=== PATIENT | male | born 1980 | race Caucasian/White ===

== ENCOUNTER 2020-11-09 18:26 | Emergency (ER) | payer MEDICAID, SELFPAY ==
[2020-11-09 18:27] VITALS: BP 116/67; PULSE 95; RESP 16; TEMP 37.3; O2SAT 97; BMI 23.9
--- NOTE | 2020-11-09 19:12 | EX.ED.UPPERE ---
HPI History of Present Illness Chief Complaint: Upper Extremity Injury Detail of Chief Complaint: Left elbow pain and swelling Informant: patient Onset/Context/Timing Onset: Yesterday Context: Gradual Onset Quality of Pain: Aching and Throbbing Current Severity: Moderate Maximum Severity: Moderate Narrative Narrative: Patient presents secondary left elbow pain and swelling. Patient states he went tubing yesterday and fell into the water striking his left elbow against a rock. He has had progressive redness and swelling over the extensor surface. He is right-hand dominant. No fever or chills. Does note decreased range of motion of the elbow secondary to pain. [facility], [facility] Medical History Hernia Home Medications doxycycline monohydrate 100 mg PO BID #20 cap 11/09/20 [Rx Last Taken Unknown] naproxen [Naprosyn] 500 mg PO BID PRN #20 tab 11/09/20 [Rx Last Taken Unknown] Allergy/AdvReac Type Severity Reaction Status Date / Time No Known Allergies Allergy Verified 11/09/20 18:28 Social History Smoking Status: Never smoker ROS ROS ED Constitutional Constitutional ED: Denies chills or fever(s) Eyes Eyes: Denies change in vision ENT ENT ED: Denies sore throat Cardiovascular Cardiovascular: Denies chest pain Respiratory/Chest Respiratory/Chest: Denies cough or dyspnea Gastrointestinal Gastrointestinal: Denies abdominal pain, diarrhea, nausea or vomiting Genitourinary Genitourinary ED: Denies dysuria Musculoskeletal Musculoskeletal: Reports other Details: Left elbow pain and swelling ; Denies back pain Neurologic Neurologic: Denies headache(s) or weakness Psychiatric Psychiatric: Denies anxiety or depression Endocrine Endocrinology: Denies polydipsia or polyuria Allergic/Immunologic Allergic/Immunologic ED: Denies urticaria EXAM Physical Exam Const Vital Signs: 11/09/20 18:27 Temperature 99.1 F Temperature Source Temporal Pulse Rate 95 Respiratory Rate 16 Blood Pressure 116/67 Blood Pressure Mean 83 Pulse Ox 97 Oxygen Delivery Method Room Air Positive well nourished and well developed General Appearance ED: well developed HEENT Reports normocephalic and head/scalp atraumatic Eyes PERRL and EOMs intact bilaterally Neck supple Chest Wall inspection of chest normal and palpation of chest normal Resp normal respiratory effort and clear to auscultation bilaterally Cardio regular rate and regular rhythm GI normal to inspection, nondistended, normoactive bowel sounds Palpation: soft Extremity Extremity Narrative: Erythema, edema, warmth noted to the olecranon bursa of the left elbow. Decreased range of motion with flexion extension secondary to pain and pulling over the extensor surface. Patient is able to pronate and supinate without difficulty. Neuro oriented x3 and no sensory deficits noted Sensorium / Orientation: alert Psych mental status grossly normal Skin no rashes or lesions noted MDM MDM MDM Narrative Medical decision making narrative: 1/2 cc 1% lidocaine is infused locally to the skin over the olecranon bursa. 18-gauge needle is introduced and 3 cc of straw fluid are withdrawn. Pressure dressing is applied over the elbow. Patient will be treated with a course of doxycycline, 1st dose given here. He is given a work note for the next couple days. Discharge Plan Triage Chief Complaint: Upper Extremity Injury ED Provider: Delmy Amaya Dx/Rx/DC Orders Clinical Impression: Olecranon bursitis Instructions: ED Bursitis Elbow Olecranon Prescriptions: New doxycycline monohydrate 100 MG capsule 100 mg PO BID Qty: 20 RF: 0 naproxen [Naprosyn] 500 mg tablet 500 mg PO BID PRN (Reason: pain) Qty: 20 RF: 0 Stand Alone Forms: ED Work / School Excuse Primary Care Provider: Kj Smith Referrals: Kj Smith, [Primary Care Provider] - 5-7 Days Disposition Disposition: Home, Self Care Discharge Date/Time: 11/09/20 19:35
[2020-11-09] MEDS: Doxycycline 100 MG CAPSULE PO (19:32)
[2020-11-09] MEDS: Lidocaine 1% (20 ml mdv) 20 ML Vial INFILT (19:32)
[2020-11-09] MEDS: Naproxen 500 MG Tablet PO (19:32)
== END 2020-11-09 19:35 | disposition home or self-care (01) ==
PROVIDERS: Emergency Provider Emergency Medicine; PCP Family Medicine
DX: M70.22 Olecranon bursitis, left elbow (principal); Y93.9 Activity, unspecified; W22.09XA Striking against other stationary object, initial encounter
CPT/HCPCS: 99284

== ENCOUNTER 2022-03-17 16:39 | Emergency (ER) | payer MEDICAID, SELFPAY ==
[2022-03-17 16:39] VITALS: BP 156/96; PULSE 60; RESP 18; TEMP 37.1; O2SAT 98; BMI 22.5
--- NOTE | 2022-03-17 18:49 | EX.ED.VIS.UR ---
HPI HPI - URI History of Present Illness Chief Complaint: Cold Sx Detail of Chief Complaint: Nonproductive cough subjective fever and chills. Informant: patient Onset/Context/Timing Onset: Days Context: Gradual Onset Timing: Continuous Current Severity: Mild Maximum Severity: Mild Associated Symptoms Associated Symptoms: Positive for Nasal Congestion, Nausea, Vomiting, Diarrhea and Nonproductive cough Narrative Narrative: 42-year-old male no stated past medical history. Says Tuesday for the last 3 days he had nonproductive cough. Subjective fever and chills. On Tuesday had nausea vomiting diarrhea that is since resolved. He is able to hold down fluids. He denies any shortness of breath. Nonproductive cough. Prior similar symptoms: Yes Recent Illness/Hospitalization: No ROS ROS ED ROS Narrative Cough. Fever and chills subjectively. Nausea, vomiting and diarrhea resolved Review of Systems ROS Unobtainable: Denies due to encephalopathy Constitutional Constitutional ED: Reports chills, fever(s) and subjective Eyes Eyes: Denies blurry vision ENT ENT ED: Reports rhinorrhea; Denies ear pain Cardiovascular Cardiovascular: Denies chest pain or palpitations Respiratory/Chest Respiratory/Chest: Reports cough; Denies dyspnea Gastrointestinal Gastrointestinal: Reports diarrhea, nausea and vomiting; Denies abdominal pain, constipation or melena Genitourinary Genitourinary ED: Denies dysuria Musculoskeletal Musculoskeletal: Reports myalgias; Denies arthralgias Integumentary Denies abscess Neurologic Neurologic: Denies headache(s) Psychiatric Psychiatric: Denies anxiety Endocrine Endocrinology: Denies cold intolerance Hematologic/Lymphatic Hematologic/Lymphatic: Denies easy bleeding Allergic/Immunologic Allergic/Immunologic ED: Denies mouth swelling or tongue swelling [facility] Medical History Hernia Home Medications NK 03/17/22 [History Last Taken Unknown] Allergy/AdvReac Type Severity Reaction Status Date / Time No Known Allergies Allergy Verified 03/17/22 17:51 Social History Smoking Status: Never smoker EXAM Physical Exam Narrative Exam Narrative: Well-appearing 42-year-old male. Vital signs stable afebrile. Pulse ox 90% on room air no signs of hypoxia. H EENT exam unremarkable. Moist Riis membranes. Neck nontender. No lymphadenopathy. No meningismus. Lungs clear to auscultation bilaterally. No rales, rhonchi or wheezes. Heart regular rhythm no murmur rate about 60. Abdomen soft nontender. Moving all 4 extremities. Calves are nontender without edema or cords. Neurologically is awake and alert with no focal motor deficits. Const Vital Signs: 03/17/22 16:39 03/17/22 17:52 Temperature 98.7 F Temperature Source Temporal Pulse Rate 60 Respiratory Rate 18 Respiratory Effort Normal Non-Labored Respiratory Pattern Normal Blood Pressure 156/96 H Blood Pressure Mean 116 Pulse Ox 98 Oxygen Delivery Method Room Air Positive well nourished and well developed; Negative for obese, cachectic or contractures General Appearance ED: well developed and NAD; Negative for cachectic, contractures, cyanotic, diaphoretic or pallor Nutritional Appearance: Negative for cachectic or obese HEENT Reports moist mucous membranes; Denies dry mucous membranes normocephalic; Negative for atraumatic or scalp tenderness Mouth ED: No dry mucous membranes Mouth: No dry mucous membranes Teeth and Gingiva: Negative for caries Throat: posterior oropharynx normal Eyes PERRL and EOMs intact bilaterally General Eye ED: Negative for pale conjunctiva or scleral icterus Neck no lymphadenopathy, supple, no meningeal signs and no JVD General: Negative for anterior neck swelling or lymphadenopathy Resp normal respiratory effort and clear to auscultation bilaterally Effort and Inspection: Negative for retractions Auscultation: Negative for rales, rhonchi or wheezes Cardio S1 normal heart sound, S2 normal heart sound and no murmurs Rate: regular rate; Negative for bradycardia Rhythm: regular rhythm; Negative for abnormal rhythm GI non-tender, non-distended and no masses Inspection: Negative for abdominal distention Auscultation: normoactive bowel sounds Palpation: soft; Negative for tender or guarding Percussion: Negative for other Back/Spine no CVA tenderness and normal ROM General Back: Negative for CVA tenderness Cervical Spine: Negative for cervical spine tenderness Thoracic Spine / Upper Back: Negative for thoracic spinal tenderness Lumbar Spine / Lower Back: Negative for lumbar spinal tenderness Extremity normal to inspection and full ROM General Extremety ED: Negative for cyanosis or tenderness General Extremity: Negative for cyanosis Neuro oriented x3 and CN's II-XII intact bilaterally Sensorium / Orientation: alert, oriented to person, oriented to place and oriented to time; Negative for orientation impaired, lethargic or stuporous Motor Exam: strength 5/5 throughout Psych mental status grossly normal Appearance: Negative for other Attitude: No agitated Mood & Affect: Negative for depressed Skin General Skin Exam: Negative for jaundice or pallor Lesions: no lesions Rashes: no rashes Trauma: Negative for abrasion MDM MDM MDM Narrative Medical decision making narrative: 42-year-old male with URI symptoms. This appears to be viral. Negative COVID and negative influenza test. Clinically does not need a chest x-ray. Will be discharged home treated as a viral syndrome. Lab Data Attestation: I reviewed the patient's lab results. Lab results narrative: Rapid COVID and influenza are both negative. Discharge Plan Triage Chief Complaint: Cold Sx ED Provider: Malick Bolton Dx/Rx/DC Orders Clinical Impression: Viral syndrome Instructions: ED URI, Viral, No Abx (Adult) Prescriptions: No Action NK Primary Care Provider: Kj Smith Referrals: Kj Smith, DO [Primary Care Provider] - 1 Week if not improving Activity Restrictions/Additional Instructions: Plenty of fluids and rest. Alternate Tylenol and Motrin for fevers. Follow-up with your doctor if not improving return if worse. Disposition Disposition: Home, Self Care
== END 2022-03-17 18:59 | disposition home or self-care (01) ==
PROVIDERS: Emergency Provider Emergency Medicine; PCP Family Medicine; Visit Provider Emergency Medicine
DX: B34.9 Viral infection, unspecified (principal); R19.7 Diarrhea, unspecified; R11.2 Nausea with vomiting, unspecified; Z20.822 Contact with and (suspected) exposure to COVID-19
CPT/HCPCS: 87428; 99282

== ENCOUNTER 2022-03-25 17:16 | Emergency (ER) | payer MEDICAID, SELFPAY ==
[2022-03-25 17:17] VITALS: BP 151/81; PULSE 87; RESP 16; TEMP 36.2; O2SAT 98; BMI 22.5
[2022-03-25] MEDS: Acetaminophen 500 MG Tablet 1000 MG PO (20:51)
--- NOTE | 2022-03-25 21:16 | ED.VIS.DENTA ---
HPI History of Present Illness Chief Complaint: Dental Informant: patient Narrative Narrative: Patient is a 42-year-old male presented with worsening dental pain. Patient noticed that he had some pain of his right upper teeth and went [facility]. He was put on penicillin and ibuprofen. He has had worsening pain since yesterday and is now having increased swelling of his left upper gums. He came to the ER. He notes he is new to the area and does not have a dentist. Does dip tobacco. No other complaints at this time. Denies any fever chills. Denies any difficulty swallowing. PFSH PFS Medical History Hernia Home Medications ibuprofen 400 mg tablet mg 03/25/22 [History Last Taken Unknown] penicillin V potassium 500 mg tablet mg 03/25/22 [History Last Taken Unknown] Allergy/AdvReac Type Severity Reaction Status Date / Time No Known Allergies Allergy Verified 03/25/22 17:19 Social History Smoking Status: Never smoker ROS ROS ED Constitutional Constitutional ED: Denies chills or fever(s) Eyes Eyes: Denies change in vision ENT ENT ED: Reports other Details: Right upper dental pain, gum swelling Cardiovascular Cardiovascular: Denies chest pain Respiratory/Chest Respiratory/Chest: Denies cough or dyspnea Gastrointestinal Gastrointestinal: Denies nausea or vomiting Musculoskeletal Musculoskeletal: Denies arthralgias or myalgias Integumentary Denies rash Neurologic Neurologic: Denies headache(s) Hematologic/Lymphatic Hematologic/Lymphatic: Denies easy bleeding or easy bruising EXAM Physical Exam Const Vital Signs: 03/25/22 17:17 Temperature 97.2 F L Temperature Source Temporal Pulse Rate 87 Respiratory Rate 16 Blood Pressure 151/81 H Blood Pressure Mean 104 Pulse Ox 98 Oxygen Delivery Method Room Air Positive well nourished and well developed General Appearance ED: well developed and NAD HEENT HEENT Narrative: Normocephalic/atraumatic. Bilateral cerumen impactions however there is partial visualization of the right panic membrane. Patient is poor dentition throughout. He has swelling and significant tenderness of the left upper gums above the first molar. There are multiple decayed teeth in various states. Patient has normal oropharynx. Sublingual mucosa is soft. Soft submental space. Normal phonation. Eyes PERRL and EOMs intact bilaterally Neck supple and no JVD Chest Wall inspection of chest normal Resp normal respiratory effort Cardio regular rate and regular rhythm GI non-distended Extremity normal to inspection Neuro oriented x3 Sensorium / Orientation: alert Motor Exam: Negative for general weakness Psych mental status grossly normal [facility] MDM Narrative Medical decision making narrative: Patient evaluated increased swelling and pain of his right upper gums. Physical exam consistent with a dental abscess. Periosteal as well as posterior superior alveolar nerve block is performed. Patient significant improvement of his pain with this. Direct pressure is applied to the area of gingival swelling and patient started to have spontaneous drainage of serous and purulent material. There is also some bleeding. Patient tolerates this well. The antibiotic should work better now that the abscess has been drained. Patient is counseled to gargle with mouthwash. Is given the dental referral sheet. Is given return precautions. Discharged home in stable condition. Procedures Other Procedures Procedure(s): Incision and drainage Area anesthetized using Marcaine. Once adequate analgesia achieved, 23-gauge needle used to aspirate at the area of fluctuance. Patient has spontaneous drainage of purulent and serous material below the gumline now. Direct pressure is applied to allow for further drainage. Patient tolerated procedure well no immediate complications Discharge Plan Triage Chief Complaint: Dental ED Provider: Gabriela Meyers Dx/Rx/DC Orders Clinical Impression: Abscess, dental, Pain, dental Instructions: ED Dental Abscess Prescriptions: No Action penicillin V potassium 500 mg tablet Label Comments: TAKE 1 TABLET BY MOUTH THREE TIMES DAILY FOR 7 DAYS ibuprofen 400 mg tablet Label Comments: TAKE 1 TABLET BY MOUTH EVERY 6 TO 8 HOURS NEEDED FOR 5 DAYS Primary Care Provider: Kj Smith Referrals: Kj Smith, DO [Primary Care Provider] - Activity Restrictions/Additional Instructions: Continue take the entire course of antibiotics. Alternate ibuprofen and Tylenol for pain. Return if you have difficulty swallowing or worsening symptoms. Disposition Disposition: Home, Self Care
[2022-03-25] MEDS: Bupivacaine 0.5%/Epi 1.8 ML Syringe INFILT (21:26)
== END 2022-03-25 21:28 | disposition home or self-care (01) ==
PROVIDERS: Emergency Provider Emergency Medicine; PCP Family Medicine; Visit Provider Emergency Medicine
DX: K04.7 Periapical abscess without sinus (principal); K08.89 Other specified disorders of teeth and supporting structures
CPT/HCPCS: 10060; 41800; 64999; 99283

== ENCOUNTER 2022-04-15 18:26 | Emergency (ER) | payer MEDICAID, SELFPAY ==
[2022-04-15 18:27] VITALS: BP 132/91; PULSE 74; RESP 18; TEMP 37; O2SAT 98; BMI 22.2
--- NOTE | 2022-04-15 20:10 | EKG12_ITS ---
Test Reason : DYSRHYTHMIA Blood Pressure : / mmHG Vent. Rate : 052 BPM Atrial Rate : 052 BPM P-R Int : 134 ms QRS Dur : 104 ms QT Int : 402 ms P-R-T Axes : 082 074 066 degrees QTc Int : 373 ms Sinus bradycardia Otherwise normal ECG Right bundle branch block Confirmed by VIVI PHELPS, GABRIEL ([id number]), assistant editor JESSICA WASSERMAN ([id number]) on 04/19/2022 10:35:12 AM Referred By: DANIEL Confirmed By:MACIE TRINIDAD MD
--- NOTE | 2022-04-15 20:11 | ED.VIS.DYS ---
HPI History of Present Illness Chief Complaint: Shortness of Breath Informant: patient Narrative Narrative: This patient presents with cough. This is an overall healthy 42-year-old male with no known medical problems and on no medications. He states he started coughing about a month ago. He was seen. He had negative COVID and influenza. At the time he was not bringing up any sputum. He states his symptoms have been waxing and waning since. He notices that in the last few days to a week he is bringing up a little bit of sputum. It seems to be clear to [place]. No blood. He gets soreness on his lower ribs with coughing but is not having chest pain. No history of PE. No personal history of PE DVT or family history. No travel surgery or immobilization. No leg swelling. His chest pain is only with a cough. He has no real risk factor for heart disease. He had a father that had an FL but it was probably in his mid 60s. Patient is also had some nasal congestion and mild sinus pressure but no pain. He has no drainage. He has felt hot and cold at times but every time they have checked he has not had a fever. Nothing clearly makes his symptoms better or worse. He is not a smoker but does chew tobacco and was counseled to quit. [facility] Medical History Hernia Home Medications albuterol sulfate 90 mcg/actuation aerosol inhaler (Ventolin HFA) 2 puff inhalation Q4H PRN PRN Wheezing ##1 04/15/22 [Rx Last Taken Unknown] Allergy/AdvReac Type Severity Reaction Status Date / Time No Known Allergies Allergy Verified 03/25/22 17:19 Social History Smoking Status: Never smoker EXAM Physical Exam Narrative Exam Narrative: Patient is sitting on the bed. He looks comfortable. He is nontoxic. He is breathing easily. Carries on normal conversation. He has mild clear rhinorrhea but no discharge. He has no tenderness of the frontal or maxillary sinuses. No stridor. No JVD. Lungs show no rhonchi or rales. He has no expiratory wheezing but he does have prolonged expiration throughout. He has mild tenderness to his lower ribs anteriorly but no rash. Heart is regular. No murmur gallop rub or muffled heart tones. Heart rate is normal. Saturations are normal. His abdomen is benign. No CVA tenderness. No skin rashes. Extremities show no edema cords or tenderness. Const Vital Signs: 04/15/22 18:27 04/15/22 20:08 04/15/22 20:35 Temperature 98.6 F Temperature Source Temporal Pulse Rate 74 68 Respiratory Rate 18 16 Respiratory Effort Normal Non-Labored Respiratory Depth Normal Respiratory Pattern Normal Normal Blood Pressure 132/91 H Blood Pressure Mean 104 Pulse Ox 98 Oxygen Delivery Method Room Air 04/15/22 20:35 Temperature Temperature Source Pulse Rate Respiratory Rate Respiratory Effort Normal Non-Labored Short of Breath Respiratory Depth Normal Respiratory Pattern Normal Blood Pressure Blood Pressure Mean Pulse Ox 99 Oxygen Delivery Method Room Air MDM MDM MDM Narrative Medical decision making narrative: 2 view chest x-ray: My independent interpretation of this patient's 2 view chest x-ray showed no acute infiltrate. No enlarged heart. No pneumothorax. No abnormal rib structure. Final reading by radiology also shows no acute finding. Patient was given a DuoNeb here. He states he does not really think he had any significant change. But he is not at all short of breath. He is laying down resting comfortably. He is PERC negative. I do not think he needs blood work such as CBC troponin or D-dimer. I think he has viral type symptoms. I do not think CAT scan of the chest would be indicated at this time. I will write for albuterol in case he gets some benefit from this. I think [id number] medications are appropriate. We did not do viral testing. Even if he had positive influenza or COVID we do not know the exact date of onset of this and really he is not amenable therefore to specific treatment for that. This patient does have some chest pain but only with cough. He has no real risk factor for coronary artery disease. His EKG shows no acute process. Radiography Diagnostic Testing: Clinical Impression(s) from Imaging Studies Chest X-Ray 04/15/22 20:22 IMPRESSION: There are no acute findings. Electronically Signed: Dave Cuevas MD at 20:39 EST , EKG Initial EKG: Comments: EKG done for indication of chest discomfort with coughing. EKG independently interpreted by me shows sinus rhythm with bradycardic rate at 52. He is got a right bundle branch pattern. Nonspecific secondary ST and T wave changes but no sign of infarct or ischemia. NC interval, QRS duration and QTc are all normal. No prior was found for comparison but was looked for. Discharge Plan Triage Chief Complaint: Shortness of Breath ED Provider: Frank Campoverde Dx/Rx/DC Orders Clinical Impression: Viral URI with cough Instructions: ED Bronchitis, No Antibiotic (Adult) Prescriptions: New albuterol sulfate [Ventolin HFA] 90 mcg/actuation HFA aerosol inhaler 2 puff inhalation Q4H PRN PRN (Reason: Wheezing) Qty: 1 0RF Primary Care Provider: Kj Smith Referrals: Kj Smiht, [Primary Care Provider] - 1 Week if not improving Disposition Disposition: Home, Self Care
--- NOTE | 2022-04-15 20:22 | RAD_ITS ---
STUDY: X-RAY CHEST REASON FOR EXAM: Male, 42 years old. CHEST PAIN cough TECHNIQUE: XR Chest 2 Views COMPARISON: None FINDINGS: There is no demonstrated pleural abnormality. Normal size heart. Normal mediastinum and [place]. Normal visualized pulmonary arteries. Normal visualized aortic arch and descending thoracic aorta. Normal visualized thoracic spine. Normal visualized ribs, clavicles, and shoulders. There is no demonstrated abnormality of the visualized soft tissue structures of the upper abdomen. RAD/Chest PA and Lateral IMPRESSION: There are no acute findings. Electronically Signed: Dave Cuevas MD at 20:39 EST ,
[2022-04-15 20:35] VITALS: PULSE 68; RESP 16; O2SAT 99
[2022-04-15] MEDS: Ipratropium/Albuterol Sulfate 3 ML AMPUL.NEB INHALATION (20:35)
== END 2022-04-15 22:56 | disposition home or self-care (01) ==
PROVIDERS: Emergency Provider Emergency Medicine; PCP Family Medicine; Visit Provider Emergency Medicine
DX: J06.9 Acute upper respiratory infection, unspecified (principal); Z20.822 Contact with and (suspected) exposure to COVID-19; R06.02 Shortness of breath; R07.9 Chest pain, unspecified
CPT/HCPCS: G0463; 71046; 93005; 94640; 99252; 99282